=== PATIENT | male | born 1940 | race Caucasian/White ===

== ENCOUNTER → 2017-12-25 | Outpatient (CLI) | payer MEDICARE, BC ==
[~2017-12-25] MED LIST: ATR10 PO; AZEL205.; CEFU500T10 PO; CHOL200022 PO; DOXA2TAB58 PO; FLUT16SP20 NS; GUAI-242 PO; IPRA15SP7 NS; KETOCONAZOLE TOP; LISI-351 PO; LISI5TAB25 PO; LOPE1LIQ49 PO; LORA-629 PO; LORA-763 PO; NAPR220T86 PO; NAPR500T31 PO; ROBC PO; SIMV-49 PO; TAMS0.4C70 PO; TRAM-627 PO; TRI05T TP; VITA100014 PO
== END ==
LOC: LAB 07:16
PROVIDERS: ATTEND Family Medicine
DX: R19.7 Diarrhea, unspecified (principal)
CPT/HCPCS: 83630; 87045; 87324; 87449

== ENCOUNTER 2018-05-23 07:33 | Emergency (ER) | payer MEDICARE, BC ==
[~2018-05-23 07:33] MED LIST changes: +RANI-325 PO
[2018-05-23] MEDS ORDERED: ELUX100T PO (07:42)
[2018-05-23] MEDS ORDERED: BISA-71 PO (07:42)
--- NOTE | 2018-05-23 07:44 | ER Report ---
History and Physical Time Seen By MD: 07:43 Hx. of Stated Complaint: PT REPORTS CONSTIPATION, NO BM SINCE SATURDAY HPI/ROS CHIEF COMPLAINT: Constipation HISTORY OF PRESENT ILLNESS: Patient is a 77-year-old male who presents to the emergency department with complaint of constipation since Saturday. He states he passed flatus last night but no bowel movement. He is been taking [id number] to soften her without success. He denies any abdominal pain. Denies vomiting or diarrhea. States he's had episodes of diarrhea than constipation in the past. He was told he might have irritable bowel syndrome and was medicated by his primary care provider with some improvement. Because the medication is somewhat expensive he is having the dose and his symptoms have returned.. Allergies: Coded Allergies: aspirin (Verified Allergy, Mild, RASH, 05/23/18) acetaminophen (Verified Allergy, Unknown, GI DISTRESS, 05/23/18) hydrocodone (Verified Allergy, Unknown, GI DISTRESS, 05/23/18) Home Meds Active Scripts Ranitidine Hcl (ZANTAC) 300 Mg Tablet, 300 MG PO QHS for 90 Days, #90 TAB 3 Refills Prov:OUMOU MORSE JR, MD 05/16/18 Azelastine HCl (Azelastine HCl) 205.5 Mcg/0.137 Ml [place].pump, 2 SPRAYS NA BID for 30 Days, #1 BOT Prov:OUMOU MORSE JR, MD 10/02/17 Ipratropium [place] 0.06% Ns (IPRATROPIUM BROMIDE 0.06% NS) 15 Ml [place], 2 SPRAYS NS BID, #1 BOT 11 Refills Prov:OUMOU MORSE JR, MD 08/30/17 Tamsulosin Hcl (TAMSULOSIN HCL) 0.4 Mg Cap.er.24h, 1 CAP PO DAILY, #90 CAP 3 Refills Prov:OUMOU STOLL MD 02/23/15 Simvastatin (SIMVASTATIN) 20 Mg Tablet, 1 TAB PO HS, #90 TAB 3 Refills Prov:OUMOU STOLL MD 02/23/15 Lisinopril/Hydrochlorothiazide (LISINOPRIL-HCTZ 10-12.5 MG TAB) 1 Each Tablet, 1 TAB PO DAILY, #90 TAB 3 Refills Prov:OUMOU STOLL MD 02/23/15 Naproxen (NAPROXEN) 500 Mg Tablet, 1 TAB PO QDAY PRN for arthritis pain, #90 TAB 3 Refills Prov:OUMOU STOLL MD 08/03/14 Reported Medications Eluxadoline (Viberzi) 100 Mg Tablet, 1 TAB PO BID 05/23/18 Bisacodyl (BISACODYL) 5 Mg Tablet.dr, 5 MG PO PRN 05/23/18 Past Medical/Surgical History Past medical history for benign positional vertigo, hyperlipidemia, hypertension, chronic back pain, history of spine surgery, cataract extraction. No history of smoking. Drinks approximately 14 glasses of wine per week. Hx Smoking: No Smoking Status: Never Smoker Hx Substance Use Disorder: No Hx Alcohol Use: Yes Constitutional Vital Sign - Last 24 Hours 05/23/18 05/23/18 07:34 08:47 Temp 98.1 Pulse 60 60 Resp 18 18 B/P (MAP) 151/88 136/80 (98) Pulse Ox 92 97 O2 Delivery Room Air Room Air Physical Exam General Appearance: The patient is alert, has no immediate need for airway protection and no current signs of toxicity. Eyes: Pupils equal and round no injection. Respiratory: Chest is non tender, lungs are clear to auscultation. Cardiac: regular rate and rhythm Gastrointestinal: Abdomen is soft and non tender, no masses, bowel sounds normal. Musculoskeletal: Neck: Neck is supple and non tender. Extremities have full range of motion and are non tender. Skin: No rashes or lesions. Medical Decision Making EKG/Imaging Imaging FACILITY: [facility] [place] PATIENT NAME: Watson Bagley : 1940 MR: [id number] V: [id number] EXAM DATE: ORDERING PHYSICIAN: RONY PÉREZ [place]CHNOLOG[place] [facility] [place] : 1940 Visit/Account:[id number] Date of Sevice: 05/23/2018 ACUTE ABDOMEN SERIES 3 VIEW Indication: constipation Comparison: None. Findings: Lungs are clear. Heart size is normal. Large amount of stool is seen throughout the colon. There are postoperative changes with hardware in the lower lumbar spine at L4 and L5. IMPRESSION: 1. Findings consistent with constipation. 2. Clear lungs. Report Dictated By: Jun Li at 05/23/2018 8:20 AM Report E-Signed By: Jun iL at 05/23/2018 8:21 AM WSN:[id number] ED Course/Re-evaluation ED Course 05/23/2018 8:48:44 am patient had large bowel movement status post enema. Plan this time will be discharged home Decision to Disposition Date: May 23, 2018 Decision to Disposition Time: 08:48 Depart Departure Latest Vital Signs Vital Signs Date Time Temp Pulse Resp B/P (MAP) Pulse Ox O2 Delivery O2 Flow Rate FiO2 05/23/18 08:47 60 18 136/80 (98) 97 Room Air 05/23/18 07:34 98.1 Impression: Primary Impression: Constipation Condition: Improved Disposition: HOME OR SELF-CARE Referrals: TEE FLORES DO (PCP) Patient Instructions: Constipation (DC) Problem Qualifiers Primary Impression: Constipation Constipation type: unspecified constipation type Qualified Codes: K59.00 - Constipation, unspecified RONY PÉREZ MD May 23, 2018 07:44
--- NOTE | 2018-05-23 08:25 | RADIOLOGY IMAGING REPORT ---
FACILITY: [facility] [place] PATIENT NAME: Watson Bagley : 1940 MR: [id number] V: [id number] EXAM DATE: ORDERING PHYSICIAN: RONY PÉREZ TECHNOLOGIST: [place] [facility] [place] Watson Bag[place] : 1940 Visit/Account:[id number] Date of Sevice: 05/23/2018 ACUTE ABDOMEN SERIES 3 VIEW Indication: constipation Comparison: None. Findings: Lungs are clear. Heart size is normal. Large amount of stool is seen throughout the colon. There are postoperative changes with hardware in the lower lumbar spine at L4 and L5. IMPRESSION: 1. Findings consistent with constipation. 2. Clear lungs. Report Dictated By: Jun Li at 05/23/2018 8:20 AM Report E-Signed By: Jun Li at 05/23/2018 8:21 AM WSN:[id number]
[2018-05-23 08:47] VITALS: BP 136/80
== END 2018-05-23 08:51 | disposition home or self-care (01) ==
LOC: ER 07:37
DX: K59.00 Constipation, unspecified (principal)
CPT/HCPCS: 99283

== ENCOUNTER 2019-04-23 01:40 | Day surgery (SDC) | payer MEDICARE, BC ==
[~2019-04-23] VITALS: Ht 190.5 cm; Wt 113.4 kg
[2019-04-23] VITALS (7 sets, daily range): BP systolic 100–146; BP diastolic 60–83
[~2019-04-23 01:40] MED LIST changes: +BISA-71 PO; +ELUX100T PO
[2019-04-23] MEDS ORDERED: PROPOFOL EMUL(*) 10MG/ML 20 ML 40 ML ONE (07:16)
[2019-04-23] MEDS ORDERED: LIDOCAINE/SOD BICARB 8.4% SYR ID ONE (09:40)
[2019-04-23] MEDS ORDERED: NORMOSOL R SOLN(*) 1000 ML BAG 1,000 ML IV PRN (09:40)
[2019-04-23] MEDS ORDERED: PROPOFOL EMUL(*) 10MG/ML 20 ML 20 ML ONE (12:29)
--- NOTE | 2019-04-23 13:00 | NUR ---
1253 SBAR REPORT WAS RECEIVED FROM DR. BARRERA AND CAMRYN RN. PATIENT IS BREATHING SPONTANEOUSLY AT A MODERATE RATE AND DEPTH. LUNGS ARE CLEAR. HIS IS ON 2 LITERS HIGH FLOW CANNULA. BOWEL SOUNDS ARE ACTIVE. UNABLE TO ASSESS PAIN OR NAUSEA. HE IS IN A L. LATERAL POSITION
--- NOTE | 2019-04-23 13:12 | NUR ---
1312 PATIENT CONTINUES TO REST WITH HIS EYES CLOSED AT THIS TIME
--- NOTE | 2019-04-23 13:16 | NUR ---
1316 PATIENT BEGAN TO WAKE UP. HE WAS MOVED TO A SEMIFOWLERS POSITION
--- NOTE | 2019-04-23 13:17 | NUR ---
1317 PATIENT WAS MOVED TO ROOM AIR
--- NOTE | 2019-04-23 14:42 | NUR ---
1356 PATIENT USED THE RESTROOM WITHOUT DIFFICULTIES 1400 PATIENT WAS ABLE TO GET DRESSED 1405 IV WAS DC'D WITH CATH INTACT 1413 WENT OVER DC INSTRUCTIONS WITH PATIENT. HE VERBALIZED UNDERSTANDING 1420 PATIENT WAS TAKEN OUT VIA WHEELCHAIR. LUNGS ARE CLEAR. BOWEL SOUNDS ARE HYPERACTIVE. HE DENIES ANY PAIN OR NAUSEA. WE MET HIS FRIEND KASHIF AT THE DOOR AND HELPED PATIENT INTO KASHIF'S VEHICLE. SEE DISCHARGE ASSESSMENT.
== END 2019-04-23 14:20 | disposition home or self-care (01) ==
LOC: OR 01:40
PROVIDERS: ATTEND Internal Medicine Gastroenterology
DX: K64.9 Unspecified hemorrhoids (principal); K57.30 Diverticulosis of large intestine without perforation or abscess without bleeding
CPT/HCPCS: 00811; 45380; 88305; J2704